=== PATIENT | female | born 1980 | race Caucasian/White ===

== ENCOUNTER 2016-09-28 02:30 | Emergency (ER) | payer MEDICAID ==
--- NOTE | 2016-09-28 03:17 | NUR ---
WAITING FOR LABS TO COME BACK BEFORE CT SCAN
[2016-09-28 03:27] LABS: BASOPHILS 0.2 % (0-2); EOSINOPHILS 1.6 % (0-7); HEMOGLOBIN 12.3 g/dL (12-16); IMMATURE GRANULOCYTES 0.2 % (0-5); LYMPHOCYTES 26.1 % (15-50); MCH 31.9 pg (26.0-34.0); MCHC 33.2 g/dL (31.0-37.0); MCV 96.1 fL (80.0-100.0); MEAN PLATELET VOLUME 11.9 fL (7.4-10.4); MONOCYTES 10.4 % (2-11); NEUTROPHILS 61.5 % (40-80); PLATELET COUNT 141 10x3/uL (130-400); RBC 3.85 10x6/uL (4.00-5.40); WBC 6.3 10x3/uL (4.8-10.8)
[2016-09-28 03:35] LABS: HCG SERUM NEGATIVE (NEGATIVE)
[2016-09-28 03:40] LABS: ANION GAP 10.9 mmol/L (8-16); BILIRUBIN - TOTAL 0.22 mg/dL (0.2-1.3); CALCIUM 7.7 mg/dL (8.5-10.1); CARBON DIOXIDE 24.8 mmol/L (21.0-32.0); POTASSIUM - SERUM 3.7 mmol/L (3.5-5.1)
[2016-09-28 03:45] LABS: APPEARANCE CLEAR (CLEAR); BILIRUBIN NEGATIVE (NEGATIVE); COLOR YELLOW (YELLOW); GLUCOSE NEGATIVE (NEGATIVE); KETONE NEGATIVE (NEGATIVE); LEUKOCYTE ESTERASE NEGATIVE (NEGATIVE); NITRITE NEGATIVE (NEGATIVE); PROTEIN NEGATIVE (NEGATIVE); UROBILINOGEN NORMAL (NORMAL)
== END 2016-09-28 08:38 | disposition home or self-care (01) ==
LOC: D.ER 02:30
PROVIDERS: Emergency Medicine
DX: R10.9 Unspecified abdominal pain (principal)

== ENCOUNTER → 2018-02-27 10:31 | Outpatient (CLI) | payer MEDICAID | END | disposition home or self-care (01) | LOC: D.NM 02-20 13:00 | DX: R10.11 Right upper quadrant pain (principal); R11.0 Nausea ==

== ENCOUNTER 2018-03-31 06:50 | Day surgery (SDC) | payer MEDICAID ==
[2018-03-30 12:45] LABS: CALC OSMOLALITY 279 mosm/kg (275-300); CALCIUM 8.6 mg/dL (8.5-10.1); CARBON DIOXIDE 28.1 mmol/L (21.0-32.0); CHLORIDE - SERUM 105 mmol/L (98-107); CREATININE - SERUM 0.8 mg/dL (0.6-1.3); GLUCOSE 93 mg/dL (74-106); POTASSIUM - SERUM 4.1 mmol/L (3.5-5.1); SODIUM 140 mmol/L (136-145); UREA NITROGEN 16 mg/dL (7-18); eGFR NON AFRICAN AMERICAN 85 mL/min (90-120)
[2018-03-30 12:49] LABS: BASOPHILS 0.1 % (0-2); EOSINOPHILS 1.2 % (0-7); HEMATOCRIT 42.9 % (36.0-48.0); HEMOGLOBIN 14.3 g/dL (12-16); IMMATURE GRANULOCYTES 0.1 % (0-5); LYMPHOCYTES 31.6 % (15-50); MCH 31.9 pg (26.0-34.0); MCHC 33.3 g/dL (31.0-37.0); MCV 95.8 fL (80.0-100.0); MEAN PLATELET VOLUME 11.6 fL (7.4-10.4); MONOCYTES 5.2 % (2-11); NEUTROPHILS 61.8 % (40-80); RBC 4.48 10x6/uL (4.00-5.40); RDW 12.3 % (11.5-14.5); WBC 6.7 10x3/uL (4.8-10.8)
[2018-03-30 12:50] LABS: PLATELET COUNT 175 10x3/uL (130-400)
[~2018-03-31] VITALS: Ht 162.6 cm; Wt 62.1 kg
--- NOTE | ~2018-03-31 | OP ---
PATIENT NAME: CHIN GUERRERO MEDICAL RECORD: [id number] :76 LOCATION:D.OPS ADMISSION DATE: SURGEON: LG CASTELLON MD DATE OF OPERATION: 03/31/2018 PREOPERATIVE DIAGNOSES: 1. Biliary dyskinesia. 2. Peptic ulcer disease. 3. Tobacco dependence syndrome. POSTOPERATIVE DIAGNOSES: 1. Biliary dyskinesia. 2. Peptic ulcer disease. 3. Tobacco dependence syndrome. PROCEDURE: Single incision laparoscopic cholecystectomy. SURGEON: Lg Castellon MD REPORT OF PROCEDURE: The patient's abdomen was prepped and draped in sterile fashion. A skin incision was made through the umbilicus longitudinally. Electrocautery was used to dissect through the subcutaneous tissues and fascia. Once I bluntly entered the abdominal cavity, then the SILS port was inserted. The abdomen was insufflated. We then grasped the gallbladder and there was noted to be some inflammatory adhesions of the fatty tissue to the fundus. These were teased down carefully with blunt dissection. The gallbladder was then fully inspected and we could visualize the patient's cystic artery and cystic duct. These were clipped proximally and distally and ligated in standard fashion. The gallbladder was then taken off the liver bed using electrocautery and placed in the right upper quadrant. We irrigated out the right upper quadrant and assured there was no sign of any bleeding or bile leakage. At this point, the ports and insufflation were then removed and the gallbladder was taken out through the umbilicus. The umbilical fascia was closed with interrupted 0 Vicryls times 6. The wounds were then irrigated out with normal saline and infused with 10 mL of 0.25% Marcaine plain. The skin incision was then closed with running subcutaneous 5-0 Monocryl and dressed appropriately. COMPLICATIONS: None. CONDITION: Stable. ANESTHESIA: General endotracheal and local. BLOOD LOSS: Minimal. TRANSINT:[id number] Voice Confirmation ID: [id number] DOCUMENT ID: [id number] OPERATIVE REPORT [id number] CHIN GUERRERO LG CASTELLON MD CC: Joselin CAMEJO SHAWN [id number] DICTATION DATE: 03/31/18 1025 [facility] SPECIALIST: 03/31/18 [address] [place] [address]
[2018-03-31] MEDS ORDERED: ZOFRAN4 MG PO (07:25)
[2018-03-31 07:33] VITALS: BP 99/69; Ht 162.6 cm; Wt 62.1 kg
[2018-03-31] MEDS ORDERED: NORCO 10-325 TA1 TAB PO (10:19)
== END 2018-03-31 13:00 | disposition home or self-care (01) ==
LOC: D.OPS 06:50
PROVIDERS: Surgery
DX: K82.8 Other specified diseases of gallbladder (principal); K27.9 Peptic ulcer, site unspecified, unspecified as acute or chronic, without hemorrhage or perforation; F17.200 Nicotine dependence, unspecified, uncomplicated; Z01.812 Encounter for preprocedural laboratory examination